=== PATIENT | male | born 2000 | race Caucasian/White ===

== ENCOUNTER 2022-02-24 05:30 | Emergency (ER) | payer BC ==
[2022-02-24] MEDS ORDERED: Cephalexin 500 MG Cap ONE (05:40)
== END 2022-02-24 05:45 | disposition home or self-care (01) ==
LOC: LB.ED 05:30 → EDSEX 05:30 → LB.ED 05:45
DX: L03.012 Cellulitis of left finger (principal); L60.0 Ingrowing nail; F17.210 Nicotine dependence, cigarettes, uncomplicated
CPT/HCPCS: 99281; 99283; A9270